=== PATIENT | female | born 1985 | race Two or more races ===

== ENCOUNTER 2022-05-24 08:34 | Emergency (ER) | payer MEDICAID ==
[~2022-05-24] VITALS: Ht 160 cm; Wt 49.0 kg
[2022-05-24 08:53] VITALS: BP 126/56
[2022-05-24] MEDS ORDERED: LIDOCAINE HCL/PF 1% 10 MG/ML 5ML VIAL INFIL ONE (09:15)
[2022-05-24] MEDS ORDERED: SULF1TAB48 PO (09:26)
[2022-05-24] MEDS ORDERED: CEPH500C2 PO (09:26)
== END 2022-05-24 10:14 | disposition home or self-care (01) ==
LOC: ER 08:57
DX: L02.212 Cutaneous abscess of back [any part, except buttock and flank] (principal); L03.312 Cellulitis of back [any part except buttock and flank]; Z98.890 Other specified postprocedural states
CPT/HCPCS: 10060; 76604; 99284; J3490; Z7610